=== PATIENT | female | born 1995 | race Caucasian/White ===

== ENCOUNTER 2018-12-19 14:56 | Emergency (ER) | payer OTHER ==
[~2018-12-19] VITALS: Ht 165.1 cm; Wt 80.7 kg
[2018-12-19 16:11] VITALS: Ht 165.1 cm; Wt 80.7 kg
[2018-12-19 20:41] VITALS: BP 129/85
== END 2018-12-19 18:07 | disposition home or self-care (01) ==
LOC: ED 14:56
DX: L08.9 Local infection of the skin and subcutaneous tissue, unspecified (principal)
CPT/HCPCS: 82962